=== PATIENT | male | born 1965 | race Caucasian/White ===

== ENCOUNTER 2018-12-06 15:42 | Emergency (ER) | payer SELFPAY ==
[~2018-12-06] VITALS: Ht 170.2 cm; Wt 76.5 kg
[~2018-12-06 15:42] MED LIST: IBUP-1542 PO
[2018-12-06 15:48] VITALS: BP 121/76; PULSE 85; RESP 18; Ht 170.2 cm; Wt 76.5 kg
== END 2018-12-06 17:44 | disposition home or self-care (01) ==
LOC: FTE 15:42
DX: I80.9 Phlebitis and thrombophlebitis of unspecified site (principal)
CPT/HCPCS: 93971